=== PATIENT | male | born 1960 | race Caucasian/White ===

== ENCOUNTER 2018-04-29 19:33 | Emergency (ER) | payer BC ==
[~2018-04-29] VITALS: Ht 172.7 cm; Wt 74.8 kg
[2018-04-29 20:08] VITALS: BP 139/73
== END 2018-04-29 22:30 | disposition left against medical advice (07) ==
LOC: ER 19:33
DX: M79.674 Pain in right toe(s) (principal); L08.89 Other specified local infections of the skin and subcutaneous tissue; Z53.21 Procedure and treatment not carried out due to patient leaving prior to being seen by health care provider
CPT/HCPCS: 73660; 82962

== ENCOUNTER 2018-04-30 06:46 | Emergency (ER) | payer BC ==
[~2018-04-30] VITALS: Ht 172.7 cm; Wt 74.8 kg
[2018-04-30 06:53] VITALS: BP 154/67
[2018-04-30] MEDS: cefTRIAXone SOD 1,000 MG VL IM ONE (11:44)
[2018-04-30] MEDS: LIDOCAINE 2% (LOCAL ANESTH.) PF 5ml SDV ONE (11:45)
== END 2018-04-30 11:46 | disposition home or self-care (01) ==
LOC: ER 06:48
DX: S90.411A Abrasion, right great toe, initial encounter (principal); E11.9 Type 2 diabetes mellitus without complications; X58.XXXA Exposure to other specified factors, initial encounter; Y93.89 Activity, other specified; Y92.89 Other specified places as the place of occurrence of the external cause; Y99.8 Other external cause status
CPT/HCPCS: 82962; 96372; 99283; J0696

== ENCOUNTER 2024-05-29 07:04 | Day surgery (SDC) | payer MEDICAID ==
[2024-05-27 09:37] LABS: Urine Bacteria None Seen /hpf (None Seen); Urine WBC None Seen /hpf (0 - 3)
[2024-05-27 09:46] LABS: Basophils # (auto) 0 10 ^3/uL (0-0.2); Basophils % (auto) 0.5 % (0.0-2.0); Eosinophils # (auto) 0.1 10 ^3/uL (0-0.8); Eosinophils % (auto) 1.8 % (0.0-7.0); Hematocrit 41.5 % (41.0-53.0); Hemoglobin 14.4 g/dL (13.5-17.5); Lymphocytes # (auto) 2.1 10 ^3/uL (0.4-5.4); Lymphocytes % (auto) 28.5 % (10.0-50.0); Mean Corpuscular Hemoglobin 32.4 pg (28.0-32.0); Mean Corpuscular Hgb Conc. 34.6 g/dL (32.0-36.0); Mean Corpuscular Volume 93.8 fL (80.0-100.0); Monocytes # (auto) 0.6 10 ^3/uL (0-1.3); Monocytes % (auto) 8.4 % (0.0-12.0); Neutrophils # (auto) 4.4 10 ^3/uL (1.6-8.6); Neutrophils % (auto) 60.8 % (37.0-80.0); Red Blood Cells 4.43 10^6/uL (4.5-5.90); Red Cell Distribution Width 12.6 % (11.8-14.3); White Blood Cell 7.2 10^3/uL (4.4-10.8)
[2024-05-27 10:31] LABS: Alanine Aminotransferase 21 U/L (7-40); Albumin 4.1 g/dL (3.2-4.8); Alkaline Phosphatase 77 U/L (46-116); Anion Gap 5 (5-15); Aspartate Aminotransferase 15 U/L (13-40); BUN/Creatinine Ratio 8.9 (10.0-20.0); Bilirubin, Total 0.7 mg/dL (0.2-1.0); Blood Urea Nitrogen 11 mg/dL (9-23); Calcium 9.5 mg/dL (8.7-10.4); Carbon Dioxide 27 mmol/L (20-30); Chloride 103 mmol/L (98-107); Glucose 170 mg/dL (74-106); Potassium 4.5 mmol/L (3.5-5.1); Sodium 135 mmol/L (136-145); Total Protein 6.5 g/dL (5.7-8.2)
[2024-05-27 10:48] LABS: Urine Blood Negative /uL (Negative); Urine Clarity Clear (Clear); Urine Color Light-Yellow (Yellow); Urine Protein, UAD Negative (Negative); Urine Specific Gravity 1.007 (1.001-1.035); Urine Urobilinogen Normal (Negative)
[2024-05-27 10:59] LABS: Partial Thromboplastin Time 25.2 SEC (24.5-34.5)
[2024-05-27 11:39] LABS: INR 1.05 (0.9-1.15)
[~2024-05-29] VITALS: Ht 172.7 cm; Wt 90.7 kg
[2024-05-29] MEDS ORDERED: ceFAZolin 2 GM/D5W50ml 50 ML IV ONE (07:20)
[2024-05-29] MEDS ORDERED: BUPIVACAINE HCL 0.25% P/F 10 ML VIAL ONE (07:35)
[2024-05-29] MEDS ORDERED: MIDAZOLAM HCL 2MG/2ML 2ml VIAL (1mg/ml) ONE (07:51)
[2024-05-29] MEDS ORDERED: HYDROmorphone HCL 2 MG/ML VL/or syr ONE (07:51)
[2024-05-29] MEDS ORDERED: fentaNYL CITRATE 100 MCG/2 ML VL ONE (07:51)
[2024-05-29] MEDS ORDERED: GLYCOPYRROLATE 0.2 MG/ML 1ML VIAL ONE (07:52)
[2024-05-29] MEDS ORDERED: LIDOCAINE 2% (LOCAL ANESTH.) PF 5ml SDV ONE (07:52)
[2024-05-29] MEDS ORDERED: DexAMETHasone SOD PHOS 10MG/1ML VIAL INJ ONE (07:52)
[2024-05-29] MEDS ORDERED: ePHEDrine SULFATE 50 MG/ML AMP ONE (07:52)
[2024-05-29] MEDS ORDERED: ROCURONIUM 10MG/ML 10ML VIAL IV ONE (07:52)
[2024-05-29] MEDS ORDERED: KETOROLAC TROMETH 30 MG/ML 1ML VIAL ONE (07:52)
[2024-05-29] MEDS ORDERED: PROPOFOL 10 MG/ML 20 ML IV ONE (07:52)
[2024-05-29] MEDS ORDERED: ONDANSETRON HCL 4 MG/2 ML VIAL ONE (07:52)
[2024-05-29] MEDS ORDERED: KETAMINE 50mg/ML 1ml syringe ONE (08:46)
[2024-05-29 09:36] VITALS: TEMP 97.8; O2SAT 99
[2024-05-29] MEDS ORDERED: ACCU-CHEK COMFORT CURVE STRIP VI ONE (09:45)
[2024-05-29] MEDS ORDERED: HYDROmorphone HCL 2 MG/ML VL/or syr IV PRN (09:45)
[2024-05-29] MEDS ORDERED: ONDANSETRON HCL 4 MG/2 ML VIAL IV ONE (09:45)
[2024-05-29 10:39] VITALS: BP 142/47; PULSE 73; RESP 13; O2SAT 99
== END 2024-05-29 10:45 | disposition home or self-care (01) ==
LOC: SUR 07:04
PROVIDERS: ATTEND Surgery
DX: K43.9 Ventral hernia without obstruction or gangrene (principal); E11.9 Type 2 diabetes mellitus without complications; I10 Essential (primary) hypertension; Z98.890 Other specified postprocedural states; Z98.41 Cataract extraction status, right eye; Z79.899 Other long term (current) drug therapy
CPT/HCPCS: 36415; 49591; 71045; 80053; 81001; 82962; 85025; 85610; 85730; J0690; J1100; J1170; J1885; J2001; J2250; J2405; J2704; J3010; J3490